=== PATIENT | male | born 1955 | race Caucasian/White ===

== ENCOUNTER 2022-02-11 08:00 | Outpatient (CLI) | payer OTHER ==
[~2022-02-11] VITALS: Ht 170.2 cm; Wt 84.4 kg
[2022-02-14] MEDS ORDERED: CEFAZOLIN SOD 1 GM/ ISO 50 ML PREMIX IV ONE (07:00)
== END 2022-02-11 13:50 | disposition home or self-care (01) ==
LOC: SLB 08:00 → EDSTATUS 02-14 09:00
PROVIDERS: ATTEND Colon & Rectal Surgery
DX: Z01.818 Encounter for other preprocedural examination (principal); K40.30 Unilateral inguinal hernia, with obstruction, without gangrene, not specified as recurrent; K43.2 Incisional hernia without obstruction or gangrene; K42.0 Umbilical hernia with obstruction, without gangrene; R19.5 Other fecal abnormalities; K62.5 Hemorrhage of anus and rectum; Z20.822 Contact with and (suspected) exposure to COVID-19
CPT/HCPCS: 36415; U0003; J0690